=== PATIENT | female | born 1955 | race Caucasian/White ===

== ENCOUNTER 2024-07-26 09:07 | Day surgery (SDC) | payer OTHER ==
[2024-07-20 12:13] LABS: PH,URINE 5.5 (5.0-8.0); URINE APPEARANCE Clear; URINE BILIRRUBIN Negative (NEGATIVE); URINE BLOOD Trace; URINE COLOR Yellow; URINE GLUCOSE Negative (NEGATIVE); URINE KETONE Negative (NEGATIVE); URINE LEUKOCYTE Small; URINE NITRATE Negative; URINE PROTEIN Negative (NEGATIVE); URINE UROBILINOGEN 0.2 E.U./dl
[2024-07-20 12:14] LABS: HEMATOCRIT 41.2 % (36.0-45.00); HEMOGLOBIN 13.8 g/dL (12.0-15.00); MEAN CELL VOLUME 82.1 fL (80.00-100.00); MEAN CORPUSCULAR HEMOGLOBIN 27.5 pg (27.00-32.0); MEAN CORPUSCULAR HGB CONC 33.5 g/dl (32.0-36.0); PLATELET COUNT 329 K/uL (150-450); RED BLOOD COUNT 5.01 M/uL (4.00-6.00); RED CELL DISTRIBUTION WIDTH 15.2 % (11.5-14.5)
[2024-07-20 12:17] LABS: URINE BACTERIA 1443.8 uL (0.0-1933); URINE EPITHELIAL CELLS 66.7 uL (0.0-38.8); URINE RBC 18.7 uL (0.0-20.8); URINE WBC 64.7 uL (0.0-23.2)
[2024-07-20 12:22] VITALS: BP 130/80
[2024-07-20 12:43] LABS: INR 0.96; PARTIAL THROMBOPLASTIN TIME 26.4 SECONDS (22.0-34.0); PROTHROMBIN TIME 10.5 SECONDS (9.0-11.5)
[2024-07-20 12:59] LABS: URINE CAST 0.61 uL (0.0-1.40)
[2024-07-20 13:18] LABS: ALBUMIN 3.7 gm/dL (3.4-5.0); BILIRUBIN TOTAL 0.39 mg/dL (0.3-1.2); CALCIUM 9.6 mg/dL (8.5-10.1); CREATININE SERUM 0.77 mg/dL (0.55-1.02); GFR 73.9; POTASSIUM 4.86 mEq/L (3.5-5.1); TOTAL PROTEIN 7.7 gm/dL (6.4-8.2)
[~2024-07-26] VITALS: Ht 152.4 cm; Wt 82.6 kg
[~2024-07-26 09:07] MED LIST: ARICEPT10 MG PO; EFFEXOR XR150 MG PO; REMERON15 M1 PO
[2024-07-26] MEDS ORDERED: POLYMYXIN B SULFATE 500,000 U VIAL ONE (18:12)
[2024-07-26] MEDS ORDERED: BUPIVACAINE HCL/Mpf 0.5% 10ML VIAL ONE (18:13)
[2024-07-26] MEDS ORDERED: TRANEXAMIC ACID 100MG/1ML (1000MG) AMPUL IV ONE ×2 (18:13→18:14)
[2024-07-26] MEDS ORDERED: LIDOCAINE HCL 1%/EPINEPHRINE 20ML VIAL IJ ONE (18:13)
[2024-07-26] MEDS ORDERED: CEFAZOLIN SODIUM 1,000 MG VIAL ONE (18:13)
[2024-07-26] MEDS ORDERED: POVIDONE-IODINE 118 ML BOTT TOP ONE (18:14)
[2024-07-26] MEDS ORDERED: OxyCODONE HCL/APAP UD (PERCOCET) PO PRN (22:30)
[2024-07-26] MEDS ORDERED: ACETAMINOPHEN WITH CODEINE 1 UDTAB TABLET PO PRN (22:30)
[2024-07-26] MEDS ORDERED: MEPERIDINE HCL/PF 25 MG/ML VIAL IM PRN (22:30)
[2024-07-26] MEDS ORDERED: CEFAZOLIN SODIUM 1,000 MG VIAL IV ONE (22:30)
[2024-07-26] MEDS ORDERED: PROMETHAZINE HCL 25 MG/ML AMPUL IM PRN (22:30)
[2024-07-26] MEDS ORDERED: DUI500 PO (22:33)
[2024-07-26] MEDS ORDERED: ACETAMINOPHEN-1 EAC2 PO (22:33)
[2024-07-26] MEDS ORDERED: ENALAPRILAT DIHYDRATE 1.25 MG/ML VIAL IV ONE (22:36)
[2024-07-26] MEDS ORDERED: SUGAMMADEX SODIUM 200 MG/2 ML VIAL IV ONE (22:40)
[2024-07-27] MEDS ORDERED: CEFADROXIL 500 MG CAPSULE PO SCH (09:00)
== END 2024-07-27 01:55 | disposition home or self-care (01) ==
LOC: CIR.AMB 09:07
PROVIDERS: ATTEND Orthopaedic Surgery Sports Medicine
DX: M75.121 Complete rotator cuff tear or rupture of right shoulder, not specified as traumatic (principal); M24.811 Other specific joint derangements of right shoulder, not elsewhere classified

== ENCOUNTER 2025-08-19 08:30 | Inpatient (IN) | payer OTHER ==
[~2025-08-19] VITALS: Ht 152.4 cm; Wt 83.9 kg
[~2025-08-19 08:30] MED LIST changes: +ACETAMINOPHEN-1 EAC2 PO; +DUI500 PO
[2025-08-19 10:13] LABS: BASO % 0.5 % (0.1-1.2); EOS # 0.17 (0.04-0.54); EOS % 2.0 % (0.7-7.0); LYMPH # 2.81 (1.18-3.74); LYMPH % 32.6 % (19.3-53.1); MEAN PLATELET VOLUME 9.40 fl (9.4-12.4); MONO # 0.50 (0.24-0.82); MONO % 5.8 % (4.7-12.5); NEUT # 5.08 (1.56-6.13); NEUT % 58.9 % (34.0-71.1); RED CELL DISTRIBUTION WIDTH 15.4 % (11.6-14.4)
[2025-08-19 10:28] VITALS: BP 131/72
[2025-08-19 11:04] LABS: ALT/SGPT 17.0 U/L (12-78); AST/SGOT 14.0 U/L (15-37); BILIRUBIN TOTAL 0.34 mg/dL (0.3-1.2); BUN CREA RATIO 15.0 (7.0-25.0); CREATININE SERUM 0.79 mg/dL (0.55-1.02); GFR 71.54; GLOBULINA 4.3 G/DL (2.4-3.5); GLUCOSE FASTING 98.0 mg/dL (65-100); OSMOLALITY SERUM 283.0 MOSM/KG (275-295)
[2025-08-19 11:27] LABS: URINE APPEARANCE Clear; URINE BILIRRUBIN Negative (NEGATIVE); URINE BLOOD Negative; URINE COLOR Yellow; URINE GLUCOSE Negative (NEGATIVE); URINE KETONE Trace (NEGATIVE); URINE LEUKOCYTE Small; URINE NITRATE Negative; URINE PROTEIN Negative (NEGATIVE); URINE UROBILINOGEN 0.2 E.U./dl
[2025-08-19 11:33] LABS: URINE BACTERIA 1569.6 uL (0.0-1933); URINE EPITHELIAL CELLS 64.5 uL (0.0-38.8); URINE RBC 16.7 uL (0.0-20.8); URINE WBC 32.6 uL (0.0-23.2)
[2025-08-19 12:07] LABS: URINE CAST 0.73 uL (0.0-1.40)
[2025-08-19 12:14] LABS: INR 0.96
[2025-08-22 14:35] LABS: RH POSITIVE
[2025-08-23] MEDS ORDERED: BUPIVACAINE HCL/MPF 0.5% 30ML VIAL ONE (07:11)
[2025-08-23] MEDS ORDERED: KETOROLAC TROMETHAMINE 60 MG VIAL IM ONE (07:11)
[2025-08-23] MEDS ORDERED: TRANEXAMIC ACID 100MG/1ML (1000MG) AMPUL ONE (07:12)
[2025-08-23] MEDS ORDERED: CEFAZOLIN SODIUM 1,000 MG VIAL ONE (07:12)
[2025-08-23] MEDS ORDERED: LIDOCAINE HCL 1%/EPINEPHRINE 20ML VIAL IJ ONE (07:12)
[2025-08-23 13:58] LABS: BASO % 0.2 % (0.1-1.2); EOS # 0.03 (0.04-0.54); EOS % 0.2 % (0.7-7.0); LYMPH # 2.07 (1.18-3.74); LYMPH % 13.4 % (19.3-53.1); MEAN PLATELET VOLUME 9.40 fl (9.4-12.4); MONO # 0.71 (0.24-0.82); MONO % 4.6 % (4.7-12.5); NEUT # 12.59 (1.56-6.13); NEUT % 81.3 % (34.0-71.1); RED CELL DISTRIBUTION WIDTH 15.4 % (11.6-14.4)
[2025-08-23] MEDS ORDERED: MORPHINE SULFATE 4 MG/ML CARTRIDGE IV PRN (18:15)
[2025-08-23] MEDS ORDERED: GENTAMICIN SULFATE 40 MG/ML VIAL IV SCH (21:00)
[2025-08-24] VITALS: BP 123/79; O2SAT 95
[2025-08-24] MEDS ORDERED: ACETAMINOPHEN WITH CODEINE 1 UDTAB TABLET PO PRN ×2 (06:45→08:15)
[2025-08-24 06:47] LABS: BASO % 0.2 % (0.1-1.2); EOS # 0.17 (0.04-0.54); EOS % 1.9 % (0.7-7.0); LYMPH # 1.73 (1.18-3.74); LYMPH % 18.9 % (19.3-53.1); MEAN PLATELET VOLUME 9.70 fl (9.4-12.4); MONO # 0.85 (0.24-0.82); MONO % 9.3 % (4.7-12.5); NEUT # 6.33 (1.56-6.13); NEUT % 69.4 % (34.0-71.1); RED CELL DISTRIBUTION WIDTH 14.9 % (11.6-14.4)
[2025-08-24 08:00] VITALS: BP 138/84; O2SAT 95
[2025-08-24] MEDS ORDERED: SENNA/DOCUSATE SODIUM 1 TAB TABLET PO SCH (09:00)
[2025-08-24] MEDS ORDERED: BACITRACIN 28.35 GM OINT.TUBE TOP SCH (09:00)
[2025-08-24] MEDS ORDERED: IRON FUM,PS/FOLIC/BCOMP,C NO.9 1 CAP CAPSULE PO SCH (09:00)
[2025-08-24 13:01] LABS: COVID-19 AG NEGATIVE (NEGATIVE)
[2025-08-24 15:30] VITALS: BP 128/65; O2SAT 96
[2025-08-24] MEDS ORDERED: PATIENTS OWN MEDICATION (MEDICAMENTO EN PISO) PO SCH ×2 (17:00→17:12)
[2025-08-24] MEDS ORDERED: CEFAZOLIN SODIUM 1,000 MG VIAL IV SCH (18:00)
[2025-08-24] MEDS ORDERED: SULFAMETHOXAZOLE/TRIMETHOPRIM DS 1 TAB PO SCH (21:00)
[2025-08-25 01:18] VITALS: BP 138/80; O2SAT 96
[2025-08-25] MEDS ORDERED: ACETAMINOPHEN-1 EAC2 PO (06:39)
[2025-08-25] MEDS ORDERED: INTEGRA PLUS C1 EACH PO (06:39)
[2025-08-25] MEDS ORDERED: Septra Ds Tablet PO (06:39)
[2025-08-25] MEDS ORDERED: XARELTO10 MG PO (06:40)
[2025-08-25 06:48] LABS: BASO % 0.4 % (0.1-1.2); EOS # 0.17 (0.04-0.54); EOS % 1.6 % (0.7-7.0); LYMPH # 2.21 (1.18-3.74); LYMPH % 20.7 % (19.3-53.1); MEAN PLATELET VOLUME 9.70 fl (9.4-12.4); MONO # 0.93 (0.24-0.82); MONO % 8.7 % (4.7-12.5); NEUT # 7.30 (1.56-6.13); NEUT % 68.3 % (34.0-71.1); RED CELL DISTRIBUTION WIDTH 14.9 % (11.6-14.4)
[2025-08-25] MEDS ORDERED: RIVAROXABAN 10 MG TAB PO NR (09:00)
[2025-08-25 09:22] VITALS: BP 145/82; O2SAT 95
== END 2025-08-25 15:15 | DRG 470 ==
LOC: SURG 08-23 06:00 → O/R 08-23 06:00 → SURH 08-23 08:30 → SURG 08-23 13:12
PROVIDERS: ADMIT Orthopaedic Surgery Sports Medicine; ATTEND Orthopaedic Surgery Sports Medicine
PROC: 0SRD0J9 Replacement of Left Knee Joint with Synthetic Substitute, Cemented, Open Approach (ICD-10-PCS; principal; 2025-08-23 11:30)
DX: M17.12 Unilateral primary osteoarthritis, left knee (principal); D64.89 Other specified anemias